=== PATIENT | male | born 1965 | race Caucasian/White ===

== ENCOUNTER → 2024-05-06 | Outpatient (CLI) | payer BC, SELFPAY ==
--- NOTE | 2024-05-06 10:07 | US_ITS ---
HISTORY: Mass -- left elbow area. TECHNIQUE: Routine and color duplex imaging of the left elbow. 38 images. COMPARISON: None. FINDINGS: 2.8 x 4.6 x 5.3 cm oval heterogeneous solid mass with mild internal vascularity at the dorsal ulnar aspect of the left elbow. Features are not typical for lipoma. US/Ext Non Vasc Limited/Soft Tiss IMPRESSION: 5.3 cm left elbow soft tissue mass. Recommend MRI without and with contrast to assess for neoplasm versus benign lesion. Electronically Signed: Lizzeth Coronado MD at 13:52 EST ,
== END | disposition home or self-care (01) ==
LOC: US 10:06
PROVIDERS: PCP Nurse Practitioner Family; Referring Provider Surgery Plastic and Reconstructive Surgery; Visit Provider Surgery Plastic and Reconstructive Surgery
DX: R22.9 Localized swelling, mass and lump, unspecified (principal)
CPT/HCPCS: 76882

== ENCOUNTER → 2024-06-18 | Outpatient (CLI) | payer OTHER, SELFPAY ==
--- NOTE | 2024-06-18 08:53 | MRI_ITS ---
PROCEDURE: MRI of the left elbow without and with intravenous contrast. REASON FOR EXAM: Left elbow mass for 5 years. TECHNIQUE: Multiplanar, multisequence MRI images of the left elbow were obtained without and with intravenous contrast. 25 cc Clariscan IV contrast was administered. COMPARISON: None available FINDINGS The included osseous structures of the left elbow appear within normal limits. No acute fracture, dislocation, or abnormal marrow replacement process. The radial and ulnar collateral ligaments are grossly intact. There is some thinning of the proximal attachment of the origin of the common extensor tendon, which may be due to tendinopathy or mild partial tear. The origin of the common flexor tendon is intact. No loose intra-articular body is demonstrated. There is mild tendinopathy of the otherwise intact distal triceps tendon. The distal attachments of the biceps and brachialis tendons are intact. In the superficial soft tissues or subcutaneous fat posterior lateral aspect of the left elbow, there is a well-marginated T1 hypointense and T2 hyperintense masslike structure measuring 3.2 x 4.1 x 5.8 cm. Assessment for enhancement on postcontrast images is difficult due to the different technical parameters of the precontrast images. With technical factors taken into account, there does appear to be some heterogeneous enhancement of this mass lesion on the postcontrast images. There does not appear to be invasion into adjacent structures. MRI/Upper Ext Joint Only W/WO Cont IMPRESSION: Heterogeneously enhancing smoothly marginated 3.2 x 4.1 x 5.8 cm well-marginate d mass lesion in the superficial soft tissues/subcutaneous fat posterolateral aspect of the left elbow. There does n ot appear to be involvement or invasion of the underlying soft tissues or fascial planes. Precise etiology is uncertain. Alt armani this could be the sequela of a chronic infectious or inflammatory process, soft tissue neoplasm would also be in the d ifferential diagnosis. Recommend either biopsy or surgical excision for definitive histologic diagnosis. The osseous structures of the left elbow appear intact without acute fracture o r abnormal marrow replacement process. Some thinning of the proximal attachment of the common extensor tendon could be due to mild tendinopathy or partial tearing. The major ligamentous structures of the left elbow and distal biceps tendons ap pear intact. Reading Location: [facility]
== END | disposition home or self-care (01) ==
PROVIDERS: PCP Nurse Practitioner Family; Referring Provider Surgery Plastic and Reconstructive Surgery; Visit Provider Surgery Plastic and Reconstructive Surgery
DX: R22.32 Localized swelling, mass and lump, left upper limb (principal)
CPT/HCPCS: 73223; A9575

== ENCOUNTER 2024-08-27 07:51 | Day surgery (SDC) | payer OTHER, SELFPAY ==
[2024-08-27] VITALS (7 sets, daily range): BP systolic 97–124; BP diastolic 56–73; PULSE 78–94; RESP 16–18; TEMP 36.3–37.3; O2SAT 88–100; BMI 33.6
--- NOTE | 2024-08-27 08:17 | PRE.ANES_ITS ---
ASA Classification* ASA Classification ASA Classification: 2 Assessment & Plan Anesthesia* Anesthesia Assessment Anesthesia Assessment: Discussed sedation and/or anesthesia options, risks, benefits, and alternatives with patient/parents/legal guardian/POA. Questions invited. The patient/parents/legal guardian/POA seems to understand and agrees to proceed with anesthesia plan. Reviewed the physical assessment, medical history, allergy history and patient home medications list prior to surgery/procedure/anesthetic and documented any changes. Performed airway and anesthesia risk assessments. 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 When Was Last Pacemaker Check QUESTION #4 FULL TEXT: You/Your Family Experience fever (hyperthermia) with Anesthesia Last Oral Intake Last Oral intake: Last Oral Intake NPO since Meds taken in AM with sips of water? Meds patient instructed to take am of surgery PONV PONV - hot air furnace installer and repairer: PONV - hot air furnace installer and repairer Female No 08/20/24 09:37 HX of Motion Sickness No 08/20/24 09:37 HX of N/V After Surgery No 08/20/24 09:37 Non-Smoker Yes 08/20/24 09:37 Duration of Surgery greater No 08/20/24 09:37 than 60 minutes Number of Risk Factors 1 08/20/24 09:37 PONV Score Low Risk 08/20/24 09:37 Height & Weight Height & Weight: Anesthesia: Height & Weight Height 6 ft 2 in 06/26/24 10:22 Respiratory Assessment Respiratory Assessment - hot air furnace installer and repairer: Respiratory Tract Infection Hx - hot air furnace installer and repairer Hx Respiratory Tract Infection No 08/20/24 09:37 STOP Sleep Apnea STOP Sleep Apnea - hot air furnace installer and repairer: STOP Sleep Apnea - hot air furnace installer and repairer Hx Hypertension Yes 08/20/24 09:37 Hx Sleep Apnea No 08/20/24 09:37 CPAP BIPAP Do you snore loudly (louder Yes 08/20/24 09:37 than talking or can be heard Do you often feel tired/ Yes 08/20/24 09:37 fatigued/ sleepy during daytime? Has anyone observed you stop No 08/20/24 09:37 breathing during sleep? STOP Results Positive 08/20/24 09:37 QUESTION #5 FULL TEXT : Do you snore loudly (louder than talking or can be heard through closed doors)? 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 Specify any problems Hx of Preganancy in last 3 N/A 08/20/24 09:37 Months Nurse Filling Out Transfusion [facility] 08/20/24 09:37 & Questions: Date: 08/20/24 08/20/24 09:37 Time: 09:43 08/20/24 09:37 Patient unable to answer at this time (ie. confused, unrespo /Reproduction History /Reproductive History - hot air furnace installer and repairer: /Reproductive Hx- hot air furnace installer and repairer Hx Now Gestational Age (in weeks): EDC: Hx Hx Para Hx Section SAB Active Medications Active Medications: Current Medications Generic Name Dose Route Start Last Admin Trade Name Freq PRN Reason Stop Dose Admin Lactated Ringer's 1,000 mls @ 15 mls/hr 08/27/24 08:15 IV .Q48H ANJEL PFSH Medical History Wears contact lenses Wears glasses Anxiety Marijuana use Diabetes Dietary restriction Hypertension History of hypertension History of diabetes mellitus Home Medications ?Medication ?Instructions ?Recorded ?Last Taken ?Type aspirin 81 mg tablet,delayed 81 mg PO QDAY 04/18/24 History release (Adult Aspirin Regimen) lisinopril 20 mg tablet 40 mg PO QDAY 04/18/24 Unkno wn History metformin 1,000 mg tablet 1,000 mg PO BID 04/18/24 Unk nown History metoprolol succinate 50 mg 50 mg PO QDAY 04/18/24 Unkn own History tablet,extended release 24 hr paroxetine HCl 20 mg tablet 20 mg PO QDAY 04/18/24 Unk nown History simvastatin 20 mg tablet 20 mg PO QHS 04/18/24 Unknow n History blood-glucose sensor (FreeStyle #1 ea 08/07/24 Unknown History Arturo 3 Plus Sensor device) empagliflozin 10 mg tablet 10 mg PO QAM 08/07/24 Unkno wn History (Jardiance) hydroxyzine HCl 50 mg tablet 50 mg PO QDAY PRN anxiety 08/07/24 Unknown History sildenafil 50 mg tablet 50 mg PO QDAY PRN intercours e 08/07/24 Unknown History tirzepatide 2.5 mg/0.5 mL 5 mg subcut MO 08/07/2407/30 History subcutaneous pen injector (Jimmyunmindaro) CBD SOFTGEL 1 ea PO BID PRN 08/20/24 Unk nown History Allergy/AdvReac Type Severity Reaction Status Date / Time No Known Allergies Allergy Verified 08/20/24 09:27 Family History Mother Cancer Heart disease Depression Father Cancer Kidney disease Daughter Anxiety Brother Alcoholism Social History Smoking Status: Never smoker alcohol intake: never substance use type: does not use additional social history: pt denies vaping, denies marijuana , uses cbd denies family hx blood clots uses aspirin daily denies ibuprofen Review of Systems (Anesthesia) ROS Narrative System reviewed and no additional complaints, except as documented.
[2024-08-27] MEDS: Lactated Ringers 1,000 ML 15 ML IV (08:44)
[2024-08-27 09:05] LABS: Bedside Glucose 205 mg/dL (74-106)
--- NOTE | 2024-08-27 09:10 | PCM.HP.STD ---
HPI - General HPI Narrative Matty Woodall is a 58 YO male here to discuss a cyst on his elbow as a referral from a local primary care physician. Patient has a history of hypertension and poorly controlled diabetes (type II, A1c of 10). Patient reports that the cyst has been there for approximately 6 years and has been growing larger in the past year. It does not drain. He has never had any imaging. Cyst interferes with him moving his elbow as it catches on things or he bumps it into tables/chairs. Patient is not a smoker. The patient reports that they do not have any personal or family history of bleeding or clotting disorders. No history of rheumatic disease No unintentional weight loss 22 May 2024: Pt here for f/u of cyst on left elbow as well as US results. Pt states he attempted to have the MRI but became anxious and could not tolerate it. Radiologist recommended MRI to rule out malignancy versus benign. 26 Jun 2023: Patient here for follow-up after MRI, which demonstrated a well-circumscribed mass in the area of concern that did not appear to violate the underlying fascial planes. I independently reviewed the MRI and discussed it with the patient today in clinic. 07 August 2024: Doing well overall and has been seeing a new primary care doctor about his blood pressure and his A1c. His A1c was 12.4 when it was last drawn approximately 8 weeks ago and he is getting it redrawn on 14 August. He is eager to get the mass removed. No new lumps or bumps in his armpit. No pain from the mass. Current Encounter (DATE OF SURGERY H&P UPDATE): I saw and examined the patient this morning in pre-operative holding. We discussed risks and benefits of today's surgery and they would like to proceed. NO CHANGE in health history since last seen and evaluated. Ready to proceed with surgery. [facility] Medical History Wears contact lenses Wears glasses Anxiety Marijuana use Diabetes Dietary restriction Hypertension History of hypertension History of diabetes mellitus Home Medications ?Medication ?Instructions ?Recorded ?Last Taken ?Type aspirin 81 mg tablet,delayed 81 mg PO QDAY 04/18/24 08/17/24 History release (Adult Aspirin Regimen) lisinopril 20 mg tablet 40 mg PO QDAY 04/18/24 08/26/24 History metformin 1,000 mg tablet 1,000 mg PO BID 04/18/24 08/26/24 History metoprolol succinate 50 mg 50 mg PO QDAY 04/18/24 08/27/24 History tablet,extended release 24 hr paroxetine HCl 20 mg tablet 20 mg PO QDAY 04/18/24 08/26/24 History simvastatin 20 mg tablet 20 mg PO QHS 04/18/24 08/26/24 History blood-glucose sensor (FreeStyle #1 ea 08/07/24 Unknown History Arturo 3 Plus Sensor device) empagliflozin 10 mg tablet 10 mg PO QAM 08/07/24 08/23/24 History (Jardiance) hydroxyzine HCl 50 mg tablet 50 mg PO QDAY PRN anxiety 08/07/24 Unknown History sildenafil 50 mg tablet 50 mg PO QDAY PRN intercourse 08/07/24 Unknown History tirzepatide 2.5 mg/0.5 mL 5 mg subcut MO 08/07/24 08/18/24 History subcutaneous pen injector (Mounjaro) CBD SOFTGEL 1 ea PO BID PRN 08/20/24 08/26/24 History Allergy/AdvReac Type Severity Reaction Status Date / Time No Known Allergies Allergy Verified 08/27/24 08:29 Family History Mother Cancer Heart disease Depression Father Cancer Kidney disease Daughter Anxiety Brother Alcoholism Social History Smoking Status: Never smoker alcohol intake: never substance use type: does not use additional social history: pt denies vaping, denies marijuana , uses cbd denies family hx blood clots uses aspirin daily denies ibuprofen Vital Signs Vital Signs Vital Signs: 08/27/24 08:32 08/27/24 08:32 Temperature 97.4 F L Temperature Source Temporal Pulse Rate 81 Respiratory Rate 18 Respiratory Pattern Normal Blood Pressure 124/73 H Blood Pressure Mean 90 Blood Pressure Source Monitor Blood Pressure Position Semi-Fowlers Blood Pressure Location Right Arm Pulse Ox 100 Oxygen Delivery Method Room Air Weight Weight: 262 lb 2.074 oz Body Mass Index (BMI) 33.6 Physical Exam Narrative Left Upper Extremity Exam unchanged Inspection: Large likely subcutaneous mass (7 x 9 cm) on the dorsal/radial side of the left elbow. Somewhat mobile, but possibly some fixed areas. Palpation: not tender. No tinel sign. Motor: Able to bend and extend all MP, PIP, and DIP joints. Sensory: Intact to light touch on the radial and ulnar borders. Vascular: Finger tips are warm and well perfused with <2 second capillary refill. NO axillary or epitrochlear lymphadenopathy Results Lab / Micro Data Labs: Laboratory Results - last 24 hr 08/27/24 08:29: POC Glucose 205 H Assessment & Plan Assessment/Plan (1) Mass: PLAN: Plan I talked the patient extensively about the risks of surgery, including bleeding, infection, damage to surrounding structures (nerve damage), surgical site dehiscence and wound formation, need for reconstruction of the wound, poor scarring, need for wound care, need for repeat operations, failure to obtain the desired result, DVT/PE, and the risks of anesthesia including , including stroke (from low blood pressure/ischemia or clot). The benefits and alternatives of this surgery were also discussed. All of their questions were answered, and they agreed to proceed with surgery. Follow-up A1c from 14 August 2024 Plan for excision with local/sedation (we will submit to insurance and schedule for later this month). Takes aspirin for heart health and will need to be off of that for 1 week prior to surgery. CPT codes for insurance prior authorization are as follows: 30674, [id number] INTERVAL H&P PLAN, DATE OF SURGERY: We will proceed with surgery today. I marked the left upper extremity mass
[2024-08-27] MEDS: Cefazolin 2 GM in 0.9% Normal Saline (100mL Bag) 100 ML IV (09:40)
--- NOTE | 2024-08-27 09:45 | MASS_PTH ---
PATIENT: AMADO VELIZ LOC: [facility] U#:[id number] AGE/SX: 58/M ROOM: RE08/27/[address]: Dr. Shade Rg MD : 1965 BED: DIS: 08/27/2024 SPEC #: [id number] RECD: 08/27/24 12:11 STATUS: MARITA JONATAN #: [id number] PEREZ: 08/27/24 09:[address]: Shade Rg DEPT: SURGICAL PATHOLOGY RECD BY: Adolfo Dinh ENTERED: 08/27/24 14:03 SP TYPE: Mass OTHR DR: ROBIN RIVERA, MARTIN-C Tissues: A - Arm, NOS B - Skin of arm Procedures: Surgery Specimen Level IV HEADER OPERATION: Excision left arm mass PRE-OP DIAGNOSIS: Mass TISSUE SUBMITTED: A- Mass, left arm, B- Skin over mass - left arm MICROSCOPIC DIAGNOSIS A. 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 Skin over mass, left arm, excision: * Benign skin with underlying fibrosing tissue with features of hemangioma MICROSCOPIC DESCRIPTION Slides are reviewed. GROSS DESCRIPTION A. Received in formalin in a container labeled with the patient's name, date of , and mass-left arm is an unoriented, 29.7 g and 5.7 x 4.5 x 1.9 cm partially encapsulated mass. The outer surface is fagan-pink to purple-negrete, roughened, and inked black. Serial sections reveal hemorrhagic and variegated surfaces with fagan-pink, granular soft tissue. No distinct skin is grossly recognized. Concert Promoter sections are submitted in A1-4 (7 slices; greater than 1 section per centimeter in greatest dimension submitted). B. Received in formalin in a container labeled with the patient's name, date of , and skin over mass L arm are 2 unoriented strips of white-fagan skin measuring 5.6 x 0.7 x 0.3 cm and 5.8 x 0.8 x 0.3 cm. The epidermis of each is unremarkable and the resection margins are inked black and green, respectively. Sectioning of each reveals unremarkable fagan-pink surfaces. Concert Promoter sections submitted in B1-2. [facility] 08-27-2024 CPT:11219v7
[2024-08-27] MEDS: Lidocaine 1% /Epi 1:100 (20ml) 20 ML Vial (10:00)
[2024-08-27] MEDS: Bupiv/Epi 0.25% 30 ML Vial (10:00)
--- NOTE | 2024-08-27 10:45 | PCM.POST.ANE ---
Anesthesia: Postop Eval I Current Vital Signs Temperature: 97.8 F Pulse Rate: 92 Blood Pressure: 104/64 Respiratory Rate: 16 Pulse Ox: 94 Oxygen Delivery Method: Nasal Cannula Oxygen Flow Rate (L/min): 2 Assessment Airway patent: Yes Spontaneous unlabored respirations: Yes Mental status: Awake and Calm nausea: No Vomiting: No Anesthesia Complication: No Fluid Hydration Crystalloid volume administer (ml): 600 Total IV fluid infused: 600 Progress Note Anesthesia document: Postop Eval 1 completed: Yes
--- NOTE | 2024-08-27 11:08 | POSTOPAN2_ITS ---
Anesthesia Postop Eval I Sum Postop Eval Completion status Anesthesia document: Postop Eval 1 completed: Yes Anesthesia Postop Eval I Summary Anesthesia Postop Eval I Summary: Anesthesia Postop Eval I: Assessment Summary Airway patent Yes 08/27/24 10:45 ANIMAL [email or web address].[email or web address] Spontaneous unlabored Yes 08/27/24 10:45 ANIMAL EVISCERATOR.GDOTT respirations Mental status Awake,Calm 08/27/24 10:45 ANIMAL EVISCERATOR.GDOTT nausea No 08/27/24 10:45 ANIMAL EVISCERATOR.GDOTT Vomiting No 08/27/24 10:45 ANIMAL EVISCERATOR.GDOTT Anesthesia Postop Eval I: Fluid Summary Crystalloid volume administer 600 08/27/24 10:45 ANIMAL EVISCERATOR.GDOTT (ml) Colloids volume administered ( ml) Blood Product volume administered (ml) Total IV fluid infused 600 08/27/24 10:45 ANIMAL EVISCERATOR.GDOTT Anesthesia Postop Eval I: Summary Notes Anesthesia Complication No 08/27/24 10:45 ANIMAL EVISCERATOR.GDOTT Anesthesia Complication Comment: Post-operative progress note Anesthesia: Postop Eval II Evaluation Mental status: Awake Pain Level: 0 nausea: No Vomiting: No
--- NOTE | 2024-08-27 11:08 | PCM.POSTANE2 ---
Anesthesia Postop Eval I Sum Postop Eval Completion status Anesthesia document: Postop Eval 1 completed: Yes Anesthesia Postop Eval I Summary Anesthesia Postop Eval I Summary: Anesthesia Postop Eval I: Assessment Summary Airway patent Yes 08/27/24 10:45 BIOSTATISTICS DIRECTOR.[email or web address] Spontaneous unlabored Yes 08/27/24 10:45 BIOSTATISTICS DIRECTOR.GDOTT respirations Mental status Awake,Calm 08/27/24 10:45 BIOSTATISTICS DIRECTOR.GDOTT nausea No 08/27/24 10:45 BIOSTATISTICS DIRECTOR.GDOTT Vomiting No 08/27/24 10:45 BIOSTATISTICS DIRECTOR.GDOTT Anesthesia Postop Eval I: Fluid Summary Crystalloid volume administer 600 08/27/24 10:45 BIOSTATISTICS DIRECTOR.GDOTT (ml) Colloids volume administered ( ml) Blood Product volume administered (ml) Total IV fluid infused 600 08/27/24 10:45 BIOSTATISTICS DIRECTOR.GDOTT Anesthesia Postop Eval I: Summary Notes Anesthesia Complication No 08/27/24 10:45 BIOSTATISTICS DIRECTOR.GDOTT Anesthesia Complication Comment: Post-operative progress note Anesthesia: Postop Eval II Evaluation Mental status: Awake Pain Level: 0 nausea: No Vomiting: No
--- NOTE | 2024-08-27 15:22 | PCM.OPRPT ---
Operative Report (Standard) Operative Information Date of Procedure: 08/27/24 Pre-Operative Diagnosis: Left forearm/elbow mass excision Post-Operative Diagnosis: Same Surgery/Procedure Performed: 1) Excision left forearm/elbow mass, 6 x 5 cm (CPT: 32839) 2) Complex closure left forearm/elbow mass, 7 cm (CPT: 69604) instructor flying: Yes Assistant Store Manager Operations: Stacey Latham Tasks completed by physician assistant: Retracting Type of Anesthesia: General/Supplemental (10 cc of 50-50 mixture of 1% lidocaine with 1-200,000 epinephrine and quarter percent Marcaine with 1-200,000 epinephrine) RN Documented Start/Stop Times: Operation Date: 08/27/24 09:45 Case Time Into Pre-Op 08/27/24 08:01 Anesthesia Start 08/27/24 09:34 Into Room 08/27/24 09:34 Procedure Start 08/27/24 09:57 Procedure End 08/27/24 10:25 Anesthesia End 08/27/24 10:35 Out of Room 08/27/24 10:35 Into Recovery 08/27/24 10:40 Out of Recovery 08/27/24 11:28 Into Phase II Recovery 08/27/24 11:30 Out of Phase II 08/27/24 12:01 Procedure Start Time: 09:57 Procedure Stop Time: 10:25 Select all DRAINS/GRAFTS/IMPLANTS that apply: None Estimated Blood Loss: 10 cc Specimen collected: Yes Description of specimen(s) removed: Mass from left forearm/elbow Skin over the mass was also sent (skin redundancy) Description of surgery: Indications: Matty Woodall is a delightful 58-year-old man with a left forearm/elbow mass. Presents today for excision. MRI demonstrated that the mass was above the fascia with well-circumscribed borders. I talked him about the risks, benefits, and alternatives of mass excision. He elected to proceed. Procedure details: Patient was critically identified in preoperative holding and taken back to the operating room where he was administered general anesthesia via an LMA and the above-noted local anesthesia. He was prepped and draped in sterile fashion and a timeout was performed. A 15 blade scalpel was used to make a direct longitudinal incision over the mass, excising some redundant skin and entering the subcutaneous tissue. The mass had a well-circumscribed capsule, which was removed with the mass. Dissection was carried out with tenotomy scissors and veins around the mass were cauterized with Bovie electrocautery for hemostasis. The mass was sent to pathology in 1 piece. The wound was irrigated with copious amounts normal saline. Hemostasis was obtained with Bovie. To limit a space, retention sutures were placed with 3-0 PDS suture from the dermis to the underlying fascia to obliterate the cavity that was holding the capsule/mass. The deep dermis was closed with 3-0 PDS and 3-0 Monocryl deep dermals followed by running subcuticular 3-0 Monocryl and Prineo tape. The total complex closure was 7 cm. The patient tolerated the procedure well. He was awakened and taken to the PACU in stable condition. Surgical Findings: Large 5 x 6 cm mass that appeared to have its own internal vasculature. I did not see much fat within the mass (did not appear to be a usual lipoma). The mass was well-circumscribed with a capsule which was completely excised with the mass. Complications Complications: No Admit VTE Documentation VTE Mechan Device Prophylaxis: SCD's
== END 2024-08-27 12:01 | disposition home or self-care (01) ==
LOC: SDC 07:53 → AC 07:54
PROVIDERS: PCP Nurse Practitioner Family; Referring Provider Surgery Plastic and Reconstructive Surgery; Visit Provider Surgery Plastic and Reconstructive Surgery
PROC: (CPT 24073; principal; 2024-08-27 09:30)
DX: D18.01 Hemangioma of skin and subcutaneous tissue (principal); E11.9 Type 2 diabetes mellitus without complications; Z79.84 Long term (current) use of oral hypoglycemic drugs; I10 Essential (primary) hypertension; Z79.899 Other long term (current) drug therapy; Z79.82 Long term (current) use of aspirin; Z79.85 Long-term (current) use of injectable non-insulin antidiabetic drugs
CPT/HCPCS: 24073; 13121; 01710; 82962; 88305; J2405